=== PATIENT | female | born 1980 | race African-American/Black ===

== ENCOUNTER 2019-07-21 09:34 | Emergency (ER) | payer SELFPAY ==
[2019-07-21 09:53] VITALS: BP 144/88; PULSE 70
[2019-07-21] MEDS ORDERED: Tetracaine HCl/PF 0.5% 4 ML Bottle EYEBOTH ONE (09:56)
--- NOTE | 2019-07-21 10:09 | EDM.PDOC ---
ED HPI GENERAL MEDICAL PROBLEM - General Chief Complaint: Eye Problems Stated Complaint: BOTH EYES HURT Time Seen by Provider: 07/21/19 09:55 Source of Information: Reports: Patient History Limitations: Reports: No Limitations - History of Present Illness INITIAL COMMENTS - FREE TEXT/NARRATIVE: HISTORY AND PHYSICAL: History of present illness: Patient is a 39-year-old female who presents to the ED today for concern of bilateral eye pain over the past 1 to 2 days. Patient states she does not feel like she got anything current her eyes but has had some watering of her eyes and states that yesterday she had some crusting but is not having that today. Patient denies visual changes, foreign body sensation, photophobia, trauma and does not wear contacts but does wear glasses and states she needs to get her vision reassessed as she has not gone for several years. Patient denies fever, chills, chest pain, shortness of breath, or cough. Denies headache, neck stiff ness, change in vision, syncope, or near syncope. Denies nausea, vomiting, abdominal pain, diarrhea, constipation, or dysuria. Has not noted any blood in urine or stool. Patient has been eating and drinking appropriately. Review of systems: As per history of present illness and below otherwise all systems reviewed and negative. Past medical history: As per history of present illness and as reviewed below otherwise noncontributory. Surgical history: As per history of present illness and as reviewed below otherwise noncontributory. Social history: See social history for further information Family history: As per history of present illness and as reviewed below otherwise noncontributory. Physical exam: General: Patient is alert, oriented, and in no acute distress. Patient sitting comfortably on exam table. HEENT: Visual acuity intact. Tonopen pressure of right eye 15. Tonopen pressure of left eye 16. EOMS intact without pain or difficulty. Fluroscene stain performed without evidence of corneal abrasion/ulceration. Bilateral upper and lower lids everted without sign of foreign body. Negative for corneal opacity, hyphema, or hypopyon. Atraumatic, normocephalic, pupils equal and reactive bilaterally, negative for conjunctival pallor or scleral icterus, mucous membranes moist, TMs normal bilaterally, throat clear, neck supple, nontender, trachea midline. No drooling or trismus noted. No meningeal signs. No hot potato voice noted. Lungs: Clear to auscultation, breath sounds equal bilaterally, chest nontender. Heart: S1S2, regular rate and rhythm without overt murmur Abdomen: Soft, nondistended, nontender. Negative for masses or hepatosplenomegaly. Negative for costovertebral tenderness. Pelvis: Stable nontender. Genitourinary: Deferred. Rectal: Deferred. Skin: Intact, warm, dry. No lesions or rashes noted. Extremities: Atraumatic, negative for cords or calf pain. Neurovascular unremarkable. Neuro: Awake, alert, oriented. Cranial nerves II through XII unremarkable. Cerebellum unremarkable. Motor and sensory unremarkable throughout. Exam nonfocal. Notes: Discussed importance for follow-up with an harvesting contractor or family support worker. Voices understanding and is agreeable to plan of care. Denies any further questions or concerns at this time. Diagnostics: Fluroscene stain with koroma lamp. Tonopen, Visual acuity Therapeutics: Tetracaine ophthalmic Prescription: Erythromycin ophthalmic Impression: Eye pain, bilateral Plan: 1. Take medication as prescribed. You can alternate ibuprofen and Tylenol as directed for pain and discomfort. 2. Follow-up with the harvesting contractor or family support worker as discussed. The number has been provided above for you to call and establish an appointment time. 3. Return to the ED as needed and as discussed. Definitive disposition and diagnosis as appropriate pending reevaluation and review of above. both eyes Pain Score (Numeric/FACES): 7 - Related Data Allergies Allergy/AdvReac Type Severity Reaction Status Date / Time Penicillins Allergy Other Verified 05/31/16 17:58 Home Meds: Home Meds Benzonatate 200 mg PO TID #30 capsule 05/31/16 [Rx] Dextromethorphan/guaiFENesin [Mucinex DM ER 600-30 MG] 1 tab PO BID PRN #20 [Rx] Erythromycin Base [Erythromycin 0.5% Ophth Oint] 1 applic OP Q4H 5 Days #1 tube 07/21/19 [Rx] Past Medical History - Past Health History Medical/Surgical History: Denies Medical/Surgical History HEENT History: Reports: None Cardiovascular History: Reports: Hypertension Respiratory History: Reports: None Gastrointestinal History: Reports: None Genitourinary History: Reports: None 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: Musculoskeletal History: Reports: None Neurological History: Reports: None Psychiatric History: Reports: None Endocrine/Metabolic History: Reports: None Hematologic History: Reports: None Immunologic History: Reports: None Oncologic (Cancer) History: Reports: None Dermatologic History: Reports: None - Infectious Disease History Infectious Disease History: Reports: None - Past Surgical History Head Surgeries/Procedures: Reports: None Female Surgical History: Reports: Section Social & Family History - Family History Family Medical History: Noncontributory - Tobacco Use Smoking Status *Q: Never Smoker - Caffeine Use Caffeine Use: Reports: Coffee, Soda - Recreational Drug Use Recreational Drug Use: Yes Recreational Drug Type: Reports: Marijuana/Hashish Recreational Drug Use Frequency: Daily ED ROS GENERAL - Review of Systems Review Of Systems: Comprehensive ROS is negative, except as noted in HPI. ED EXAM GENERAL W FULL EYE - Physical Exam Exam: See Below (see dictation) Course - Vital Signs Last Recorded V/S: Last Vital Signs Temp 97.1 F 07/21/19 09:51 Pulse 70 07/21/19 09:51 Resp 16 07/21/19 09:51 BP 144/88 H 07/21/19 09:51 Pulse Ox 97 07/21/19 09:51 - Orders/Labs/Meds Orders: Active Orders 24 hr Category Date Time Status Communication Order [RC] STAT Care 07/21/19 09:58 Active Meds: Medications Discontinued Medications Generic Name Dose Route Start Last Admin Trade Name Thea PRN Reason Stop Dose Admin Tetracaine HCl 2 ml 07/21/19 09:56 Tetracaine 0.5% Steri-Unit Samantha EYEBOTH 07/21/19 09:57 ASDIRECTED ONE Departure - Departure Time of Disposition: 10:19 Disposition: Home, Self-Care 01 Clinical Impression: Eye pain Qualifiers: Laterality: bilateral Qualified Code(s): H57.13 - Ocular pain, bilateral - Discharge Information Referrals: PCP,None [Primary Care Provider] - Forms: ED Department Discharge Additional Instructions: The following information is given to patients seen in the emergency department who are being discharged to home. This information is to outline your options for follow-up care. We provide all patients seen in our emergency department with a follow-up referral. The need for follow-up, as well as the timing and circumstances, are variable depending upon the specifics of your emergency department visit. If you don't have a primary care physician on staff, we will provide you with a referral. We always advise you to contact your personal physician following an emergency department visit to inform them of the circumstance of the visit and for follow-up with them and/or the need for any referrals to a consulting specialist. The emergency department will also refer you to a specialist when appropriate. This referral assures that you have the opportunity for follow-up care with a specialist. All of these measure are taken in an effort to provide you with optimal care, which includes your follow-up. Under all circumstances we always encourage you to contact your private physician who remains a resource for coordinating your care. When calling for follow-up care, please make the office aware that this follow-up is from your recent emergency room visit. If for any reason you are refused follow-up, please contact the [facility] Emergency Department at and asked to speak to the emergency department charge nurse. [facility] Primary Care [address] [place] [id number] [facility], Ophthalmology [address] [place] [address] 1. Take medication as prescribed. You can alternate ibuprofen and Tylenol as directed for pain and discomfort. 2. Follow-up with the harvesting contractor or family support worker as discussed. The number has been provided above for you to call and establish an appointment time. 3. Return to the ED as needed and as discussed. Sepsis Event Note - Evaluation Sepsis Screening Result: No Definite Risk - Focused Exam Vital Signs: Vital Signs Temp Pulse Resp BP Pulse Ox 07/21/19 09:51 97.1 F 70 16 144/88 H 97 Date Exam was Performed: 07/21/19 Time Exam was Performed: 10:19 - My Orders Last 24 Hours: My Active Orders 07/21/19 09:58 Communication Order [RC] STAT - Assessment/Plan Last 24 Hours: My Active Orders 07/21/19 09:58 Communication Order [RC] STAT
== END 2019-07-21 10:51 | disposition home or self-care (01) ==
LOC: MW.ED 09:34
DX: H57.13 Ocular pain, bilateral (principal); I10 Essential (primary) hypertension; Z88.0 Allergy status to penicillin
CPT/HCPCS: 99283

== ENCOUNTER 2020-04-07 12:49 | Emergency (ER) | payer SELFPAY ==
[2020-04-07] MEDS ORDERED: diphenhydrAMINE 50 MG Cap PO ONE (13:17)
[2020-04-07] MEDS ORDERED: methylPREDNISolone Sodium Succinate 125 MG/2 ML SDV IM ONE (13:17)
--- NOTE | 2020-04-07 13:30 | EDM.PDOC ---
ED HPI GENERAL MEDICAL PROBLEM - General Chief Complaint: Allergic Reaction Stated Complaint: ALLERGIC REACTION Time Seen by Provider: 04/07/20 12:51 Source of Information: Reports: Patient History Limitations: Reports: No Limitations - History of Present Illness INITIAL COMMENTS - FREE TEXT/NARRATIVE: HISTORY AND PHYSICAL: History of present illness: Patient is a 39-year-old female who presents to the ED today with concern of allergic reaction that occurred about an hour and a half prior to arrival to the ED. Patient states that she has not ate or drank anything new today and only had 1 cup of coffee which she has every morning. Patient states that after drinking her coffee, she began feeling her eyes starting to swell and her face becoming itchy. Patient denies any throat or tongue swelling or any difficulties breathing. Patient states that she has had an allergic reaction similar to this a few months ago which improved after taking Benadryl/Claritin but patient states she has been unable to figure out what has caused this in the past. Patient denies any other symptoms or concerns or any trauma or injury. Patient denies fever, chills, chest pain, shortness of breath, or cough. Denies headache, neck stiff ness, change in vision, syncope, or near syncope. Denies nausea, vomiting, abdominal pain, diarrhea, constipation, or dysuria. Has not noted any blood in urine or stool. Patient has been eating and drinking appropriately. Review of systems: As per history of present illness and below otherwise all systems reviewed and negative. Past medical history: As per history of present illness and as reviewed below otherwise noncontributory. Surgical history: As per history of present illness and as reviewed below otherwise noncontributory. Social history: See social history for further information Family history: As per history of present illness and as reviewed below otherwise noncontributory. Physical exam: General: Patient is alert, oriented, and in no acute distress. Patient sitting comfortably on exam table. Vitals stable and reviewed by me along with nursing documentation. HEENT: Patient does have edema of the bilateral eyelids with tearing of bilateral eyes that she is periodically trying to itch on exam. Bilateral mild- moderate scleral injection. No lip edema, tongue edema, or oropharyngeal edema. No stridor. Otherwise, atraumatic, normocephalic, pupils equal and reactive bilaterally, negative for conjunctival pallor or scleral icterus, mucous membranes moist, TMs normal bilaterally, throat clear, neck supple, nontender, trachea midline. No drooling or trismus noted. No meningeal signs. No hot potato voice noted. Lungs: Clear to auscultation, breath sounds equal bilaterally, chest nontender. Heart: S1S2, regular rate and rhythm without overt murmur Abdomen: Soft, nondistended, nontender. Negative for masses or hepatosplenomegaly. Negative for costovertebral tenderness. Pelvis: Stable nontender. Genitourinary: Deferred. Rectal: Deferred. Skin: Intact, warm, dry. No lesions or rashes noted. Extremities: Atraumatic, negative for cords or calf pain. Neurovascular unremarkable. Neuro: Awake, alert, oriented. Cranial nerves II through XII unremarkable. Cerebellum unremarkable. Motor and sensory unremarkable throughout. Exam nonfocal. Notes: Patient is on blood pressure medications but does not take an SANA or an ARB. Upon reevaluation of patient after therapeutics were given, she was assessed for 2 hours in the emergency room with improvement of her symptoms. Her eye lids are now only mildly edematous and she states the itching has resolved. Her eyes are no longer watering and scleral injection has improved. She does not have escalation of her symptoms and continues to have no lip or tongue edema, no overt oropharyngeal edema, no stridor. Signs and symptoms that would prompt return to the ED thoroughly discussed with patient. Discussed the importance for close follow-up with her primary care provider. Voices understanding and is agreeable to plan of care. Denies any further questions or concerns at this time. Diagnostics: None Therapeutics: Benadryl, Solumedrol Prescription: Medrol dose pack Impression: Allergic reaction, improving Plan: 1. Avoid triggers. Continue to monitor for possible exposures/triggers/foods. 2. While symptomatic continue to routinely take Benadryl. Take medication as prescribed. 3. You may use topical calamine lotion, cool tempid oatmeal baths, Aveeno bath/lotions. 4. Consider formal allergy testing once you have completed your medications and have improved. 5. Please follow up with your Primary care doctor as discussed. Return to the ED as needed and as discussed. Definitive disposition and diagnosis as appropriate pending reevaluation and re view of above. - Related Data Allergies Allergy/AdvReac Type Severity Reaction Status Date / Time jean Allergy Hives Verified 04/07/20 13:19 Penicillins Allergy Hives Verified 04/07/20 13:19 Home Meds: Home Meds Cholecalciferol (Vitamin D3) [Vitamin D] 5,000 unit PO ASDIRECTED 04/07/20 [History] Loratadine [Claritin] 10 mg PO DAILY 04/07/20 [History] Metoprolol Succinate [Kapspargo Sprinkle] 25 mg PO DAILY 04/07/20 [History] Propranolol [Inderal] 40 mg PO DAILY 04/07/20 [History] amLODIPine [Norvasc] 10 mg PO DAILY 04/07/20 [History] diphenhydrAMINE HCL [Benadryl] 25 mg PO BEDTIME 04/07/20 [History] hydroCHLOROthiazide [Hydrochlorothiazide] 25 mg PO DAILY 04/07/20 [History] Past Medical History - Past Health History Medical/Surgical History: Denies Medical/Surgical History HEENT History: Reports: None Cardiovascular History: Reports: Hypertension Respiratory History: Reports: None Gastrointestinal History: Reports: None Genitourinary History: Reports: None 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: Musculoskeletal History: Reports: None Neurological History: Reports: None Psychiatric History: Reports: None Endocrine/Metabolic History: Reports: None Hematologic History: Reports: None Immunologic History: Reports: None Oncologic (Cancer) History: Reports: None Dermatologic History: Reports: None - Infectious Disease History Infectious Disease History: Reports: None - Past Surgical History Head Surgeries/Procedures: Reports: None Female Surgical History: Reports: Section Social & Family History - Family History Family Medical History: No Pertinent Family History - Caffeine Use Caffeine Use: Reports: Coffee, Soda ED ROS ALLERGIC REACTION - Review of Systems Review Of Systems: Comprehensive ROS is negative, except as noted in HPI. ED EXAM GENERAL NO PERIP PULSE - Physical Exam Exam: See Below (see dictation) Course - Vital Signs Last Recorded V/S: Last Vital Signs Temp 98.3 F 04/07/20 13:06 Pulse 59 L 04/07/20 14:00 Resp 17 04/07/20 14:00 BP 154/87 H 04/07/20 14:00 Pulse Ox 99 04/07/20 14:00 - Orders/Labs/Meds Meds: Medications Discontinued Medications Generic Name Dose Route Start Last Admin Trade Name Freq PRN Reason Stop Dose Admin Diphenhydramine HCl 50 mg 04/07/20 13:17 04/07/20 13:22 Benadryl PO 04/07/20 13:18 50 mg ONETIME ONE Administration Methylprednisolone Sodium Succinate 125 mg 04/07/20 13:17 04/07/20 13:23 Solu-Medrol IM 04/07/20 13:18 125 mg ONETIME ONE Administration Departure - Departure Time of Disposition: 15:12 Disposition: Home, Self-Care 01 Clinical Impression: Allergic reaction Qualifiers: Encounter type: initial encounter Qualified Code(s): T78.40XA - Allergy, unspecified, initial encounter - Discharge Information Referrals: Rima Voss NP [Primary Care Provider] - Forms: ED Department Discharge Additional Instructions: The following information is given to patients seen in the emergency department who are being discharged to home. This information is to outline your options for follow-up care. We provide all patients seen in our emergency department with a follow-up referral. The need for follow-up, as well as the timing and circumstances, are variable depending upon the specifics of your emergency department visit. If you don't have a primary care physician on staff, we will provide you with a referral. We always advise you to contact your personal physician following an emergency department visit to inform them of the circumstance of the visit and for follow-up with them and/or the need for any referrals to a consulting specialist. The emergency department will also refer you to a specialist when appropriate. This referral assures that you have the opportunity for follow-up care with a specialist. All of these measure are taken in an effort to provide you with optimal care, which includes your follow-up. Under all circumstances we always encourage you to contact your private physician who remains a resource for coordinating your care. When calling for follow-up care, please make the office aware that this follow-up is from your recent emergency room visit. If for any reason you are refused follow-up, please contact the [facility] Emergency Department at and asked to speak to the emergency department charge nurse. [facility] Primary Care [address] [place] [id number] [facility] [address] [place] [address] 1. Avoid triggers. Continue to monitor for possible exposures/triggers/foods. 2. While symptomatic continue to routinely take Benadryl. Take medication as prescribed. 3. You may use topical calamine lotion, cool tempid oatmeal baths, Aveeno bath/lotions. 4. Consider formal allergy testing once you have completed your medications and have improved. 5. Please follow up with your Primary care doctor as discussed. Return to the ED as needed and as discussed. Sepsis Event Note (ED) - Evaluation Sepsis Screening Result: No Definite Risk - Focused Exam Vital Signs: Vital Signs Temp Pulse Resp BP Pulse Ox 04/07/20 14:00 59 L 17 154/87 H 99 04/07/20 13:06 98.3 F 61 18 173/100 H 98
[2020-04-07 14:01] VITALS: BP 154/87; PULSE 59
== END 2020-04-07 15:22 | disposition home or self-care (01) ==
LOC: MW.ED 12:49
DX: T78.40XA Allergy, unspecified, initial encounter (principal); I10 Essential (primary) hypertension; Z88.0 Allergy status to penicillin; Z91.018 Allergy to other foods; Z79.899 Other long term (current) drug therapy
CPT/HCPCS: 96372; 99283; A9270; J2930

== ENCOUNTER 2021-09-04 06:57 | Emergency (ER) | payer SELFPAY ==
[2021-09-04] MEDS ORDERED: Lidocaine 1% 5 ML VIAL INJECT ONE (07:14)
[2021-09-04] MEDS ORDERED: Bupivacaine 0.5% 10 ML SDV INJECT ONE (07:15)
[2021-09-04 09:02] VITALS: BP 135/85; PULSE 60
== END 2021-09-04 09:02 | disposition home or self-care (01) ==
LOC: MW.ED 06:57
DX: L60.0 Ingrowing nail (principal); L02.415 Cutaneous abscess of right lower limb; I10 Essential (primary) hypertension; Z88.0 Allergy status to penicillin; Z91.018 Allergy to other foods
CPT/HCPCS: 10060; 99283; J3490

== ENCOUNTER 2022-01-18 13:03 | Emergency (ER) | payer SELFPAY ==
[2022-01-18] MEDS ORDERED: Sodium Chloride 0.9% 10 ML Syringe FLUSH PRN (13:08)
[2022-01-18] MEDS ORDERED: Dexamethasone 10 MG/ML SDV IV ONE (13:08)
[2022-01-18] MEDS ORDERED: Sodium Chloride 0.9% 2.5 ML Syringe FLUSH PRN (13:08)
[2022-01-18] MEDS ORDERED: diphenhydrAMINE 50 MG/ML SDV IVPUSH ONE (13:08)
[2022-01-18] MEDS ORDERED: Famotidine 20 MG/2 ML SDV IVPUSH ONE (13:10)
[2022-01-18] MEDS ORDERED: amLODIPine 5 MG Tab PO ONE (13:40)
[2022-01-18] MEDS ORDERED: Hydrochlorothiazide 25 MG Tab PO ONE (13:40)
[2022-01-18 14:19] VITALS: BP 156/93; PULSE 56
== END 2022-01-18 14:41 | disposition home or self-care (01) ==
LOC: MW.ED 13:03
DX: T63.441A Toxic effect of venom of bees, accidental (unintentional), initial encounter (principal); I10 Essential (primary) hypertension; Z91.030 Bee allergy status; Z91.018 Allergy to other foods; Z88.0 Allergy status to penicillin; Z79.899 Other long term (current) drug therapy
CPT/HCPCS: 96374; 96375; 99282; A9270; J1100; J1200; J3490

== ENCOUNTER 2022-01-19 06:10 | Emergency (ER) | payer SELFPAY ==
[2022-01-19] MEDS ORDERED: Ibuprofen 600 MG Tab PO ONE (06:20)
[2022-01-19 06:25] VITALS: BP 184/116; PULSE 89
== END 2022-01-19 06:37 | disposition home or self-care (01) ==
LOC: MW.ED 06:10
DX: T63.441A Toxic effect of venom of bees, accidental (unintentional), initial encounter (principal); I10 Essential (primary) hypertension; Z91.030 Bee allergy status; Z91.018 Allergy to other foods; Z88.0 Allergy status to penicillin; Z79.899 Other long term (current) drug therapy
CPT/HCPCS: 99282; A9270

== ENCOUNTER 2022-12-17 05:21 | Emergency (ER) | payer SELFPAY ==
[2022-12-17] MEDS ORDERED: Ibuprofen 600 MG Tab PO ONE (05:41)
[2022-12-17] MEDS ORDERED: Acetaminophen 325 MG Tab PO ONE (05:41)
[2022-12-17 06:13] VITALS: BP 138/78; PULSE 55
== END 2022-12-17 06:12 | disposition home or self-care (01) ==
LOC: MW.ED 05:21
DX: S63.91XA Sprain of unspecified part of right wrist and hand, initial encounter (principal); I10 Essential (primary) hypertension; Z79.899 Other long term (current) drug therapy; Z88.0 Allergy status to penicillin; Z91.018 Allergy to other foods; Z91.030 Bee allergy status; W18.30XA Fall on same level, unspecified, initial encounter
CPT/HCPCS: 73130; 99283; A9270

== ENCOUNTER 2023-02-06 07:52 | Emergency (ER) | payer SELFPAY ==
[2023-02-06] MEDS ORDERED: Sodium Chloride 0.9% 10 ML Syringe FLUSH PRN (08:21)
[2023-02-06] MEDS ORDERED: Sodium Chloride 0.9% 2.5 ML Syringe FLUSH PRN (08:21)
[2023-02-06 08:27] LABS: BASOPHILS PERCENT AUTO 0.5 % (0.0-1.5); EOSINOPHILS ABSOLUTE AUTO 0.1 K/uL (0.0-0.7); EOSINOPHILS PERCENT AUTO 1.9 % (0.0-7.0); HEMATOCRIT 38.2 % (36.0-46.0); HEMOGLOBIN 12.9 g/dL (12.0-16.0); LYMPHOCYTES ABSOLUTE AUTO 3.1 K/uL (0.6-2.4); LYMPHOCYTES PERCENT AUTO 54.2 % (16.0-40.0); MEAN CORPUSCULAR HEMOGLOBIN 28.4 pg (27.0-32.0); MEAN CORPUSCULAR HGB CONC 33.8 g/dL (31.0-37.0); MEAN CORPUSCULAR VOLUME 84.1 fL (80.0-98.0); MONOCYTES ABSOLUTE AUTO 0.5 K/uL (0.0-0.8); MONOCYTES PERCENT AUTO 8.4 % (0.0-15.0); NRBC ABSOLUTE 0 K/uL; PLATELET COUNT,PLT 280 K/uL (150-400); RED BLOOD CELL COUNT 4.54 M/uL (4.30-5.90); WHITE BLOOD CELL COUNT,WBC 5.74 K/uL (4.0-11.0)
[2023-02-06] MEDS ORDERED: Ketorolac 30 MG/ML SDV IVPUSH ONE (08:33)
[2023-02-06 08:54] LABS: A/G RATIO 1.1 (0.9-1.6); ALBUMIN 3.7 g/dL (3.4-5.0); BILIRUBIN TOTAL 0.4 mg/dL (0.2-1.0); CALCIUM 8.1 mg/dL (8.5-10.1); CARBON DIOXIDE,CO2 26.1 mmol/L (21.0-32.0); CREATININE 0.8 mg/dL (0.6-1.0); EST CRCL DRUG DOSING (CG) 78.3 mL/min; POTASSIUM,K 4.2 mmol/L (3.5-5.1)
[2023-02-06 08:58] LABS: INR < 0.93 (0.86-1.11); PTT,PARTIAL THROMBOPLSTIN TIME 29.5 SEC (23.9-30.7)
[2023-02-06 10:47] VITALS: BP 150/82; PULSE 57
== END 2023-02-06 10:30 | disposition home or self-care (01) ==
LOC: MW.ED 07:52
DX: M54.6 Pain in thoracic spine (principal); R07.89 Other chest pain; I10 Essential (primary) hypertension; Z91.030 Bee allergy status; Z88.0 Allergy status to penicillin; Z91.018 Allergy to other foods
CPT/HCPCS: 36415; 71045; 80053; 84484; 84703; 85025; 85379; 85610; 85730; 93005; 96374; 96375; 99285; J1885; J3360; J3490; 93010; 99284

== ENCOUNTER 2023-05-04 13:21 | Emergency (ER) | payer SELFPAY ==
[2023-05-04 14:04] VITALS: BP 177/87; PULSE 50
[2023-05-04] MEDS ORDERED: Ketorolac 30 MG/ML SDV IVPUSH ONE (14:12)
[2023-05-04] MEDS ORDERED: Sodium Chloride 0.9% 1,000 ML IV ONE (14:12)
[2023-05-04] MEDS ORDERED: Prochlorperazine 10 MG/2 ML SDV IVPUSH ONE (14:13)
[2023-05-04] MEDS ORDERED: diphenhydrAMINE 50 MG/ML SDV IVPUSH ONE (14:13)
== END 2023-05-04 14:57 | disposition left against medical advice (07) ==
LOC: MW.ED 13:21
DX: R51.9 Headache, unspecified (principal); Z88.0 Allergy status to penicillin; Z91.030 Bee allergy status; Z91.018 Allergy to other foods; Z79.899 Other long term (current) drug therapy
CPT/HCPCS: 99283; 99284

== ENCOUNTER 2023-12-08 04:34 | Emergency (ER) | payer SELFPAY ==
[2023-12-08 04:45] VITALS: PULSE 72
[2023-12-08] MEDS: Ondansetron 4 MG Tab.DIS PO ONE (04:51)
[2023-12-08] MEDS: Ibuprofen 600 MG Tab PO ONE (04:51)
[2023-12-08 05:30] LABS: CORONAVIRUS COVID-19 NAA POSITIVE (NEGATIVE); INFLUENZA A NAA NEGATIVE (NEGATIVE); INFLUENZA B NAA NEGATIVE (NEGATIVE)
[2023-12-08 06:02] VITALS: BP 140/96
== END 2023-12-08 05:59 | disposition home or self-care (01) ==
LOC: MW.ED 04:34
DX: U07.1 COVID-19 (principal); B34.9 Viral infection, unspecified; Z88.0 Allergy status to penicillin; Z91.030 Bee allergy status; Z91.018 Allergy to other foods; Z79.899 Other long term (current) drug therapy; Z75.8 Other problems related to medical facilities and other health care
CPT/HCPCS: 0240U; 99284; A9270

== ENCOUNTER 2024-05-06 04:45 | Emergency (ER) | payer SELFPAY ==
[2024-05-06 04:58] VITALS: PULSE 61
[2024-05-06] MEDS: Acetaminophen 500 MG Tab PO ONE (05:17)
[2024-05-06 05:33] VITALS: BP 132/71
== END 2024-05-06 05:33 | disposition home or self-care (01) ==
LOC: MW.ED 04:45
DX: G56.03 Carpal tunnel syndrome, bilateral upper limbs (principal); I10 Essential (primary) hypertension; Z79.899 Other long term (current) drug therapy; Z88.0 Allergy status to penicillin; Z91.030 Bee allergy status; Z91.018 Allergy to other foods
CPT/HCPCS: 99283; A9270

== ENCOUNTER 2024-05-10 02:23 | Emergency (ER) | payer SELFPAY ==
[2024-05-10 03:31] VITALS: BP 141/87; PULSE 57
== END 2024-05-10 03:30 | disposition home or self-care (01) ==
LOC: MW.ED 02:23
DX: M79.602 Pain in left arm (principal); I10 Essential (primary) hypertension; Z79.899 Other long term (current) drug therapy; Z88.0 Allergy status to penicillin; Z91.018 Allergy to other foods; Z91.030 Bee allergy status
CPT/HCPCS: 99283

== ENCOUNTER 2024-08-05 07:38 | Emergency (ER) | payer SELFPAY ==
[2024-08-05] MEDS ORDERED: Sodium Chloride 0.9% 10 ML Syringe FLUSH PRN (08:13)
[2024-08-05 08:33] LABS: BASOPHILS ABSOLUTE AUTO 0.05 K/uL (0.00-0.20); BASOPHILS PERCENT AUTO 0.8 % (0.0-1.0); EOSINOPHILS ABSOLUTE AUTO 0.14 K/uL (0.00-0.45); EOSINOPHILS PERCENT AUTO 2.2 % (0.0-6.0); HEMOGLOBIN 13.6 g/dL (12.0-16.0); IMMATURE GRAN ABSOLUTE AUTO 0.02 K/uL (0.00-0.05); IMMATURE GRAN PERCENT AUTO 0.3 % (0.0-0.4); LYMPHOCYTES PERCENT AUTO 57.8 % (24.0-44.0); MEAN CORPUSCULAR HEMOGLOBIN 28.2 pg (28.0-32.0); MEAN CORPUSCULAR HGB CONC 34.9 g/dL (32.0-36.0); MEAN CORPUSCULAR VOLUME 80.7 fL (83.0-99.0); MEAN PLATELET VOLUME 9.3 fL (9.4-12.3); MONOCYTES ABSOLUTE AUTO 0.52 K/uL (0.00-0.80); MONOCYTES PERCENT AUTO 8.3 % (0.0-8.0); NEUTROPHILS PERCENT AUTO 30.6 % (41.0-71.0); PLATELET COUNT,PLT 287 K/uL (150-400); RED BLOOD CELL COUNT 4.83 M/uL (4.10-5.30); WHITE BLOOD CELL COUNT,WBC 6.23 K/uL (3.9-11.3)
[2024-08-05 09:09] LABS: A/G RATIO 1.1 (0.9-1.6); ALBUMIN 4.1 g/dL (3.4-5.0); BILIRUBIN TOTAL 0.8 mg/dL (0.2-1.0); CALCIUM 9.3 mg/dL (8.5-10.1); CARBON DIOXIDE,CO2 25.5 mmol/L (21.0-32.0); CREATININE 0.7 mg/dL (0.6-1.0); EST CRCL DRUG DOSING (CG) 87.64 mL/min; MAGNESIUM 1.5 mg/dL (1.8-2.4); POTASSIUM,K 4.3 mmol/L (3.5-5.1); PROTEIN TOTAL,TP 7.7 g/dL (6.4-8.2); TSH ULTRASENSITIVE 0.61 uIU/mL (0.36-3.74)
[2024-08-05 10:52] LABS: APPEARANCE,URINE SLT CLOUDY; BILIRUBIN,URINE NEGATIVE (NEGATIVE); COLOR,URINE YELLOW; GLUCOSE,URINE NEGATIVE (NEGATIVE); KETONES,URINE NEGATIVE (NEGATIVE); LEUKOCYTE ESTERASE,URINE NEGATIVE (NEGATIVE); NITRITE,URINE NEGATIVE (NEGATIVE); OCCULT BLOOD,URINE TRACE-LYSED (NEGATIVE); PH,URINE 5.5 (5.0-8.0); PROTEIN,URINE NEGATIVE (NEGATIVE); UROBILINOGEN,URINE 0.2 EU/dL (<2.0)
[2024-08-05 10:59] LABS: BACTERIA,URINE RARE (NEGATIVE); EPITHELIAL CELLS,URINE RARE (NONE-FEW); RBC,URINE 0-1 (0-2/HPF); WBC,URINE 0-1 (0-5/HPF)
[2024-08-05 11:58] VITALS: BP 166/103; PULSE 53
== END 2024-08-05 11:57 | disposition home or self-care (01) ==
LOC: MW.ED 07:38
DX: R10.84 Generalized abdominal pain (principal); I10 Essential (primary) hypertension; Z91.030 Bee allergy status; Z91.018 Allergy to other foods; Z88.0 Allergy status to penicillin; Z79.899 Other long term (current) drug therapy
CPT/HCPCS: 36415; 74018; 74018-26; 80053; 81001; 81025; 83690; 83735; 84443; 85025; 99283; 99284

== ENCOUNTER 2024-11-01 07:42 | Emergency (ER) | payer BC ==
[2024-11-01 07:55] VITALS: PULSE 53
[2024-11-01] MEDS ORDERED: Sodium Chloride 0.9% 20 ML SDV IV PRN (08:05)
[2024-11-01] MEDS ORDERED: Sodium Chloride 0.9% 2.5 ML Syringe FLUSH PRN (08:05)
[2024-11-01] MEDS ORDERED: Sodium Chloride 0.9% 10 ML Syringe FLUSH PRN (08:05)
[2024-11-01] MEDS ORDERED: Naloxone 0.4 MG/ML SDV IVPUSH PRN (08:07)
[2024-11-01] MEDS: Metoclopramide 10 MG/2 ML SDV IVPUSH ONE ×2 (08:20→09:20)
[2024-11-01] MEDS: Morphine 2 MG/ML SYRINGE IVPUSH ONE (08:20)
[2024-11-01] MEDS: Sodium Chloride 0.9% 1,000 ML IV ONE (08:21)
[2024-11-01 08:27] LABS: BASOPHILS ABSOLUTE AUTO 0.04 K/uL (0.00-0.20); BASOPHILS PERCENT AUTO 0.7 % (0.0-1.0); EOSINOPHILS ABSOLUTE AUTO 0.18 K/uL (0.00-0.45); EOSINOPHILS PERCENT AUTO 3.1 % (0.0-6.0); HEMATOCRIT 35.2 % (37.0-47.0); HEMOGLOBIN 12.2 g/dL (12.0-16.0); IMMATURE GRAN ABSOLUTE AUTO 0.01 K/uL (0.00-0.05); IMMATURE GRAN PERCENT AUTO 0.2 % (0.0-0.4); LYMPHOCYTES ABSOLUTE AUTO 3.07 K/uL (1.00-4.80); LYMPHOCYTES PERCENT AUTO 53.6 % (24.0-44.0); MEAN CORPUSCULAR HEMOGLOBIN 28.3 pg (28.0-32.0); MEAN CORPUSCULAR HGB CONC 34.7 g/dL (32.0-36.0); MEAN CORPUSCULAR VOLUME 81.7 fL (83.0-99.0); MEAN PLATELET VOLUME 9.3 fL (9.4-12.3); MONOCYTES ABSOLUTE AUTO 0.53 K/uL (0.00-0.80); MONOCYTES PERCENT AUTO 9.2 % (0.0-8.0); NEUTROPHILS PERCENT AUTO 33.2 % (41.0-71.0); PLATELET COUNT,PLT 265 K/uL (150-400); RED BLOOD CELL COUNT 4.31 M/uL (4.10-5.30); WHITE BLOOD CELL COUNT,WBC 5.73 K/uL (3.9-11.3)
[2024-11-01] MEDS: Iopamidol 755 MG/ML 500 ML Multipack Bottle IVPUSH STA (08:34)
[2024-11-01] MEDS: hydrALAZINE 20 MG/ML SDV IVPUSH ONE (08:38)
[2024-11-01 08:43] LABS: INR 0.94 (0.86-1.11); PTT,PARTIAL THROMBOPLSTIN TIME 29.7 SEC (23.9-30.7)
[2024-11-01 09:02] LABS: A/G RATIO 1.1 (0.9-1.6); ALANINE AMINOTRANSFERASE,ALT 17 IU/L (14-63); ALBUMIN 3.5 g/dL (3.4-5.0); ALKALINE PHOSPHATASE 69 U/L (46-116); ASPARTATE AMNIOTRANSFERASE,AST 15 IU/L (15-37); BILIRUBIN TOTAL 0.5 mg/dL (0.2-1.0); BLOOD UREA NITROGEN,BUN 13 mg/dL (7.0-18.0); CALCIUM 8.4 mg/dL (8.5-10.1); CARBON DIOXIDE,CO2 25.2 mmol/L (21.0-32.0); CHLORIDE,CL 105 mmol/L (98-107); CREATININE 0.7 mg/dL (0.6-1.0); GLUCOSE RANDOM 114 mg/dL (74-106); LIPASE 23 U/L (16-77); MAGNESIUM 1.7 mg/dL (1.8-2.4); POTASSIUM,K 4.1 mmol/L (3.5-5.1); PRO B-TYPE NATRIUR PEPT,BNPPRO 113 pg/mL (0-125); PROTEIN TOTAL,TP 6.6 g/dL (6.4-8.2); SODIUM,NA 139 mmol/L (136-145); TSH ULTRASENSITIVE 1.16 uIU/mL (0.36-3.74)
[2024-11-01 09:09] LABS: ESTIMATED GFR 109 mL/min (>60)
[2024-11-01] MEDS: Ketorolac 30 MG/ML SDV IVPUSH ONE (09:19)
[2024-11-01] MEDS: diphenhydrAMINE 50 MG/ML SDV IVPUSH ONE (09:21)
[2024-11-01] MEDS: Magnesium Sulfate 2 GM/50 mL 2 GM in Premix Bag 1 BAG IV ONE (09:22)
[2024-11-01 11:09] VITALS: BP 198/97
== END 2024-11-01 11:08 | disposition home or self-care (01) ==
LOC: MW.ED 07:42
DX: I10 Essential (primary) hypertension (principal); G43.909 Migraine, unspecified, not intractable, without status migrainosus; Z91.030 Bee allergy status; Z91.018 Allergy to other foods; Z88.0 Allergy status to penicillin; Z79.899 Other long term (current) drug therapy; Z79.51 Long term (current) use of inhaled steroids
CPT/HCPCS: 36415; 70450; 70496; 70498; 71045; 80053; 83690; 83735; 83880; 84443; 84484; 84703; 85025; 85610; 85730; 93005; 96361; 96365; 96375; 96376; 99284; J1200; J1885; J2270; J2765; J3475; J7030; Q9967; 99283